=== PATIENT | female | born 1975 | race Caucasian/White ===

== ENCOUNTER 2016-10-11 19:37 | Emergency (ER) | payer OTHER ==
--- NOTE | 2016-10-11 19:48 | EDM.PDOC ---
ED HPI ENT - General Chief Complaint: ENT Problem Stated Complaint: SINUS INFECTION/SWOLLEN R SIDE OF FACE Time Seen by Provider: 10/11/16 19:48 - History of Present Illness INITIAL COMMENTS - FREE TEXT/NARRATIVE: 40-year-old female presents emergency room with dental pain. This is been getting worse over the last 24 hours patient has had a lot of problems with this tooth in the past however she's not been able to get in to see a dentist. Patient has had increased swelling pain no discharge she's getting some swelling below her jaw and generally it just hurts. She's been using ibuprofen did help some. The pain is on the right lower jaw. - Related Data Allergies/ADRs: Allergies Allergy/AdvReac Type Severity Reaction Status Date / Time No Known Allergies Allergy Verified 07/24/16 11:51 Home Meds: Home Meds . 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 Denies: Ear pain, Rhinitis, Sinus problem Respiratory: Reports: No Symptoms Cardiovascular: Reports: No symptoms GI/Abdominal: Reports: No symptoms ED EXAM, ENT - Physical Exam Exam: See Below Exam Limited By: No limitations General Appearance: alert, no apparent distress Ears: normal external exam, normal canal, hearing grossly normal, normal TMs Mouth/Throat: Normal lips, Normal oropharynx, Other (She's had several decayed and rotted teeth right lower mid is the problem tooth at this time she's got some surrounding gum erythema no drainage or abscess seen at this time it is tender to touch) Head: atraumatic, normocephalic, other (She is a small amount of swelling beneath the right side of her jaw) Neck: normal inspection, supple, non-tender, full range of motion Respiratory/Chest: no respiratory distress, lungs clear, normal breath sounds Cardiovascular: regular rate, rhythm, no edema, no murmur Course - Vital Signs Last Recorded V/S: Last Vital Signs Temp 37.3 C 10/11/16 19:46 Pulse 97 10/11/16 19:46 Resp 20 10/11/16 19:46 BP 177/109 H 10/11/16 19:46 Pulse Ox 100 10/11/16 19:46 Departure - Departure Time of Disposition: 19:54 Disposition: Home, Self-Care 01 Clinical Impression: Dental caries Prescriptions: Clindamycin HCl 150 mg PO Q6H #40 capsule Hydrocodone/Acetaminophen [[place] 5-325 Tablet] 1 - 2 tab PO Q6H PRN #10 tablet PRN Reason: Pain Instructions: Dental Caries, [id number] Referrals: PCP,None [Primary Care Provider] - Forms: ED Department Discharge Additional Instructions: Return to the emergency room with any questions or problems. Followup with a dentist as soon as possible. They are the ones that can fix this.
== END 2016-10-11 20:16 | disposition home or self-care (01) ==
LOC: JD.ED 19:37
CPT/HCPCS: 99283

== ENCOUNTER 2016-11-13 15:01 | Emergency (ER) | payer MEDICAID, OTHER ==
[2016-11-13] MEDS ORDERED: Amoxicillin/Clavulanate K 875-125 MG Tab PO ONE (15:35)
--- NOTE | 2016-11-13 15:41 | EDM.PDOC ---
ED HPI GENERAL MEDICAL PROBLEM - General Chief Complaint: General Stated Complaint: TOOTH PAIN Time Seen by Provider: 11/13/16 15:11 Source of Information: Reports: Patient History Limitations: Reports: No limitations - History of Present Illness INITIAL COMMENTS - FREE TEXT/NARRATIVE: Patient is a 41-year-old female presents ED complaining of right lower jaw swelling and pain to her right cheek. Patient states for the past today shows a saw and progressively getting worse. She does have a history of dental abscesses and has been on clindamycin and Augmentin over the past 2 months. She has appointment with oral surgeon this coming Saturday to to have a teeth extracted. She was informed to come to the ED for IV/by mouth or antibiotics. Pain has been mild to moderate decreased with Tylenol and ibuprofen. Appetite has minimally changed. She denies any fever/chills, nausea/vomiting, or any additional complaints. 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 Tooth/Teeth Pain Score (Numeric/FACES): 9 - Related Data Allergies Allergy/AdvReac Type Severity Reaction Status Date / Time No Known Allergies Allergy Verified 11/13/16 15:05 Home Meds: Home Meds Acetaminophen/HYDROcodone [[place] 325-5 MG] 1 tab PO Q6H PRN #5 tablet 11/13/16 [ Rx] Amoxicillin/Potassium Clav [Augmentin 875-125 Tablet] 1 each PO BID #20 tablet 11/13/16 [Rx] Past Medical History HEENT History: Reports: Other (see below) Other HEENT History: tooth pain 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 ED EXAM, GENERAL - Physical Exam Exam: See Below Exam Limited By: No limitations General Appearance: alert, WD/WN, no apparent distress Eye Exam: bilateral eye: normal inspection Ears: normal external exam, hearing grossly normal Nose: normal inspection, normal mucosa, no blood Throat/Mouth: Normal voice, Other (Swelling noted to the right lower jaw/cheek. Pain with palpation of the inner/outer cheek and upper/lower gum line. No increased warmth noted. No drainage noted. ) Head: atraumatic, normocephalic Neck: normal inspection, supple, non-tender, full range of motion. No: lymphadenopathy (L), lymphadenopathy (R) Respiratory/Chest: no respiratory distress, lungs clear, normal breath sounds, no accessory muscle use Cardiovascular: normal peripheral pulses, regular rate, rhythm Peripheral Pulses: 2+: radial (R) Neurological: alert, oriented, CN II-XII intact, normal cognition, no motor/ sensory deficits Psychiatric: normal affect, normal mood Skin Exam: Warm, Dry, Intact, Normal color Course - Vital Signs Last Recorded V/S: Last Vital Signs Temp 97.7 F 11/13/16 15:06 Pulse 80 11/13/16 15:57 Resp BP 140/70 11/13/16 15:57 Pulse Ox 98 11/13/16 15:06 - Orders/Labs/Meds Meds: Medications Discontinued Medications Generic Name Dose Route Start Last Admin Trade Name Chevyq PRN Reason Stop Dose Admin Amoxicillin/Clavulanate Potassium 1 tab 11/13/16 15:35 11/13/16 15:43 Augmentin 875 Mg/125 Mg PO 11/13/16 15:36 1 tab ONETIME ONE Administration Ceftriaxone Sodium 1 gm/ 0 gm 11/13/16 15:45 11/13/16 15:44 Lidocaine HCl 2.1 ml IM 1 inj Q24H POLLO Administration - Re-Assessments/Exams Free Text/Narrative Re-Assessment/Exam: Swelling noted to the right lower jaw/cheek with pain on palpation. She was on Augmentin previously with good results approximately 1 month ago. Requests IV/ IM and po antibiotics. Ordered rocephin 1 gram IM and augmentin 875mg po. Will discharge patient home with prescription for augmentin and norco for pain. Departure - Departure Time of Disposition: 15:36 Disposition: Home, Self-Care 01 Condition: good Clinical Impression: Dental abscess, Dental abscess Prescriptions: Acetaminophen/HYDROcodone [[place] 325-5 MG] 1 tab PO Q6H PRN #5 tablet PRN Reason: Pain (Severe 7-10) Amoxicillin/Potassium Clav [Augmentin 875-125 Tablet] 1 each PO BID #20 tablet Instructions: Dental Abscess, [id number] Referrals: PCP,None [Primary Care Provider] - Forms: ED Department Discharge Additional Instructions: Keep appointment with Dr. Palencia Oral Surgeon for this coming Saturday as scheduled. Take augmentin 875mg PO twice a day for 10 days. For pain take tylenol 650mg and ibuprofen 600mg every 6 hours in alternating fashion. For severe pain take norco 1 tab every 6 hours as needed. No driving while taking narcotics. Return to the E.D. if you develop fever/chills, n/v, worsening pain/ swelling.
[2016-11-13] MEDS ORDERED: cefTRIAXone 1 GM, Lidocaine 1% 2.1 ML IM SCH ×2 (15:45)
[2016-11-13 15:58] VITALS: BP 140/70
== END 2016-11-13 15:59 | disposition home or self-care (01) ==
LOC: JD.ED 15:01
DX: K04.7 Periapical abscess without sinus (principal); F17.210 Nicotine dependence, cigarettes, uncomplicated
CPT/HCPCS: 96372; 99283; A9270; J0696

== ENCOUNTER 2017-02-22 15:14 | Emergency (ER) | payer MEDICAID ==
[2017-02-22 15:29] VITALS: BP 137/87
--- NOTE | 2017-02-22 17:43 | EDM.PDOC ---
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 She states she has had heavy menstrual periods for at least several years but for the last 3 days she has had more heavy menstrual bleeding then typical. She has been soaking pads "very frequently". There also have been intermittent clots for the last 3 days since the onset of her menstrual period 3 days ago. Had intermittent lower abdominal and pelvic cramping. She feels weak, lightheaded and dizzy when standing. She states she does have history of uterine fibroids. No chest pain or difficulty breathing. No shoulder discomfort. 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 Psychiatric History: Reports: Anxiety, PTSD - Past Surgical History Female Surgical History: Reports: Section, D&C, Other (See Below) Other Female Surgeries/Procedures: placenta previa Social & Family History - Tobacco Use Smoking Status *Q: Current Every Day Smoker Years of Tobacco use: 14 Packs/Tins Daily: 1 Second Hand Smoke Exposure: Yes - Caffeine Use Caffeine Use: Reports: Tea - Alcohol Use Days Per Week of Alcohol Use: 0 - Recreational Drug Use Recreational Drug Use: No Recreational Drug Type: Reports: Marijuana/Hashish Recreational Drug Use Frequency: Binges ED ROS GENERAL - Review of Systems Review Of Systems: See Below Constitutional: Reports: No Symptoms HEENT: Reports: No Symptoms Respiratory: Denies: Shortness of Breath, Pleuritic Chest Pain Cardiovascular: Denies: Chest Pain GI/Abdominal: Reports: Abdominal Pain (Lower abdominal and pelvic cramping). Denies: Nausea, Vomiting : Reports: Other (More heavy vaginal bleeding than usual) Musculoskeletal: Reports: No Symptoms Skin: Reports: No Symptoms Neurological: Reports: Dizziness ED EXAM, RENAL/ - Physical Exam Exam: See Below General Appearance: Alert Eye Exam: Bilateral Eye: PERRL Throat/Mouth: Normal Inspection, Normal Oropharynx Neck: Supple Respiratory/Chest: No Respiratory Distress, Lungs Clear, Normal Breath Sounds Cardiovascular: Regular Rate, Rhythm GI/Abdominal: Soft, Tender (Female) Exam: Normal External Exam, Vaginal Bleeding (There is a small amount of dark blood in the posterior vaginal vault, no clots present at this time) Extremities: Normal Inspection Neurological: Alert, Oriented, No Motor/Sensory Deficits Skin Exam: Warm, Dry, Normal Color Course - Vital Signs Last Recorded V/S: Last Vital Signs Temp 98.1 F 02/22/17 15:28 Pulse 82 02/22/17 15:28 Resp 20 02/22/17 15:28 BP 137/87 02/22/17 15:28 Pulse Ox 100 02/22/17 15:28 - Orders/Labs/Meds Labs: Laboratory Tests 02/22/17 02/22/17 02/22/17 Range/Units 17:24 17:24 17:24 WBC 6.62 (3.98-10.04) K/mm3 RBC 4.36 (3.98-5.22) M/mm3 Hgb 11.2 (11.2-15.7) gm/L Hct 35.2 (34.1-44.9) % MCV 80.7 (79.4-94.8) fl MCH 25.7 (25.6-32.2) pg MCHC 31.8 L (32.2-35.5) g/dl RDW Std Deviation 42.7 (36.4-46.3) fL Plt Count 219 (182-369) K/mm3 MPV 10.2 (9.4-12.3) fl Neut % (Auto) 58.1 (34.0-71.1) % Lymph % (Auto) 31.9 (19.3-51.7) % Dewitt % (Auto) 7.4 (4.7-12.5) % Eos % (Auto) 1.8 (0.7-5.8) Baso % (Auto) 0.6 (0.1-1.2) % Neut # (Auto) 3.85 (1.56-6.13) K/mm3 Lymph # (Auto) 2.11 (1.18-3.74) K/mm3 Dewitt # (Auto) 0.49 H (0.24-0.36) K/mm3 Eos # (Auto) 0.12 (0.04-0.36) K/mm3 Baso # (Auto) 0.04 (0.01-0.08) K/mm3 Sodium 139 (136-145) mEq/L Potassium 4.0 (3.5-5.1) mEq/L Chloride 104 (98-107) mEq/L Carbon Dioxide 28 (21-32) mEq/L Anion Gap 11.0 (5-15) BUN 10 (7-18) mg/dL Creatinine 0.9 (0.55-1.02) mg/dL Est Cr Clr Drug Dosing 83.82 mL/min Estimated GFR (MDRD) > 60 (>60) mL/min BUN/Creatinine Ratio 11.1 L (14-18) Glucose 85 (74-106) mg/dL Calcium 8.8 (8.5-10.1) mg/dL Total Bilirubin 0.3 (0.2-1.0) mg/dL AST 20 (15-37) U/L ALT 22 (14-59) U/L Alkaline Phosphatase 76 (46-116) U/L Total Protein 7.3 (6.4-8.2) g/dl Albumin 3.9 (3.4-5.0) g/dl Globulin 3.4 gm/dL Albumin/Globulin Ratio 1.2 (1-2) TSH 3rd Generation 1.101 (0.358-3.74) uIU/mL HCG, Quant < 1.0 mIU/mL Departure - Departure Time of Disposition: 18:38 Disposition: Home, Self-Care 01 Condition: Fair Clinical Impression: Menorrhagia with regular cycle Anemia Qualifiers: Anemia type: unspecified type Qualified Code(s): D64.9 - Anemia, unspecified - Discharge Information Forms: ED Department Discharge Additional Instructions: Drink plenty of water to maintain hydration, rest, symptoms should gradually resolve now over the next day or 2, follow up with Carline later this month as planned, consider getting referral to women's clinic for further evaluation and treatment of heavier than normal menstrual bleeding, known history of uterine fibroids. Consider starting iron supplement once or twice daily to help build your iron level and hemoglobin level. Return to ED if symptoms worsening in any way.
== END 2017-02-22 18:45 | disposition home or self-care (01) ==
LOC: JD.ED 15:14
DX: N92.0 Excessive and frequent menstruation with regular cycle (principal); D64.9 Anemia, unspecified; F41.9 Anxiety disorder, unspecified; F17.210 Nicotine dependence, cigarettes, uncomplicated; F43.10 Post-traumatic stress disorder, unspecified; Z79.899 Other long term (current) drug therapy
CPT/HCPCS: 36415; 80053; 84443; 84702; 85025; 99282; 99284

== ENCOUNTER 2017-04-30 07:50 | Day surgery (SDC) | payer MEDICAID ==
[~2017-04-30 07:50] MED LIST: Lactated Ringers 1,000 ML IV SCH; Lidocaine 1%/Sod Bicarbonate in NS 8.4% 1 ML Syringe PRN; Sodium Chloride 0.9% 10 ML Syringe FLUSH PRN
[2017-04-30] MEDS ORDERED: Midazolam 1 MG/ML 2 ML SDV ONE (07:58)
[2017-04-30] MEDS ORDERED: Ondansetron 4 MG/2 ML SDV ONE (07:58)
[2017-04-30] MEDS ORDERED: Propofol 200 MG/20 ML SDV ONE (07:58)
[2017-04-30] MEDS ORDERED: Rocuronium 50 MG/5 ML Vial ONE (07:58)
[2017-04-30] MEDS ORDERED: fentaNYL 250 MCG/5 ML SDV ONE (07:58)
[2017-04-30] MEDS ORDERED: ceFAZolin 1 GM Vial ONE (07:59)
[2017-04-30] MEDS ORDERED: Lidocaine 1% 4 ML ONE (07:59)
[2017-04-30] MEDS ORDERED: Sodium Chloride 0.9% 50 ML SDV ONE (08:09)
[2017-04-30] MEDS ORDERED: Lidocaine 1% with EPINEPHrine 1:100,000 20 ML MDV ONE (08:09)
--- NOTE | 2017-04-30 08:20 | PCM.PREANE ---
Preanesthetic Assessment - Anesthesia/Transfusion/Family Hx Anesthesia History: Prior Anesthesia Without Reaction Family History of Anesthesia Reaction: No Transfusion History: Prior Transfusion Without Reaction - Review of Systems General: No Symptoms Pulmonary: No Symptoms Cardiovascular: No Symptoms Gastrointestinal: No Symptoms Neurological: No Symptoms Other: Reports: None - Physical Assessment NPO Status Date: 04/29/17 NPO Status Time: 00:00 Pulse: 92 O2 Sat by Pulse Oximetry: 97 Respiratory Rate: 16 Blood Pressure: 113/74 Temperature: 37.2 C Height: 1.73 m Weight: 70.307 kg ASA Class: 2 Mental Status: Alert & Oriented x3 Airway Class: Mallampati = 1 Dentition: Reports: Missing Tooth/Teeth Thyro-Mental Finger Breadths: 3 Mouth Opening Finger Breadths: 3 ROM/Head Extension: Full Lungs: Clear to Auscultation, Normal Respiratory Effort Cardiovascular: Regular Rate, Regular Rhythm, No Murmurs - Lab Values: Laboratory Last Values WBC 5.68 K/mm3 (3.98-10.04) 04/29/17 09:02 RBC 4.77 M/mm3 (3.98-5.22) 04/29/17 09:02 Hgb 12.0 gm/L (11.2-15.7) 04/29/17 09:02 Hct 38.0 % (34.1-44.9) 04/29/17 09:02 MCV 79.7 fl (79.4-94.8) 04/29/17 09:02 MCH 25.2 pg (25.6-32.2) L 04/29/17 09:02 MCHC 31.6 g/dl (32.2-35.5) L 04/29/17 09:02 RDW Std Deviation 46.4 fL (36.4-46.3) H 04/29/17 09:02 Plt Count 184 K/mm3 (182-369) 04/29/17 09:02 MPV 11.6 fl (9.4-12.3) 04/29/17 09:02 Neut % (Auto) 59.9 % (34.0-71.1) 04/29/17 09:02 Lymph % (Auto) 30.3 % (19.3-51.7) 04/29/17 09:02 [place] % (Auto) 6.9 % (4.7-12.5) 04/29/17 09:02 Eos % (Auto) 2.1 (0.7-5.8) 04/29/17 09:02 Baso % (Auto) 0.4 % (0.1-1.2) 04/29/17 09:02 Neut # (Auto) 3.41 K/mm3 (1.56-6.13) 04/29/17 09:02 Lymph # (Auto) 1.72 K/mm3 (1.18-3.74) 04/29/17 09:02 [place] # (Auto) 0.39 K/mm3 (0.24-0.36) H 04/29/17 09:02 Eos # (Auto) 0.12 K/mm3 (0.04-0.36) 04/29/17 09:02 Baso # (Auto) 0.02 K/mm3 (0.01-0.08) 04/29/17 09:02 Free T4 1.06 ng/dL (0.76-1.46) 04/29/17 09:02 TSH 3rd Generation 1.031 uIU/mL (0.358-3.74) 04/29/17 09:02 HCG, Quant < 1.0 mIU/mL 04/29/17 09:02 Blood Type O POSITIVE 04/29/17 09:02 Gel Antibody Screen Negative 04/29/17 09:02 - Allergies Allergies/Adverse Reactions: Allergies Allergy/AdvReac Type Severity Reaction Status Date / Time No Known Allergies Allergy Verified 04/29/17 15:40 - Blood Blood Available: Yes Product(s) Available: PRBC - Anesthesia Plan Pre-Op Medication Ordered: None - Acknowledgements Anesthesia Type Planned: General Anesthesia Pt an Appropriate Candidate for the Planned Anesthesia: Yes Alternatives and Risks of Anesthesia Discussed w Pt/Guardian: Yes Pt/Guardian Understands and Agrees with Anesthesia Plan: Yes PreAnesthesia Questionnaire HEENT History: Reports: Allergic Rhinitis, Other (See Below) Other HEENT History: tooth pain Cardiovascular History: Reports: Hypertension Respiratory History: Reports: None Gastrointestinal History: Reports: Chronic Constipation, GERD 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 OB/BYN History: abnormal mammogram, pelvic pain, , heavy menses, bacterial vagitis, hypermenorrhea, menorrhagia, fibroid uterus, trichamonas vaginitis Musculoskeletal History: Reports: None Neurological History: Reports: Migraines Psychiatric History: Reports: Anxiety, PTSD Endocrine/Metabolic History: Reports: Diabetes, Gestational Hematologic History: Reports: Blood Transfusion(s) Immunologic History: Reports: None Oncologic (Cancer) History: Reports: None Dermatologic History: Reports: None - Past Surgical History Head Surgeries/Procedures: Reports: None Cardiovascular Surgical History: Reports: None Respiratory Surgical History: Reports: None GI Surgical History: Reports: Colonoscopy Female Surgical History: Reports: Section, Cervical Conization, D&C , Other (See Below) Other Female Surgeries/Procedures: placenta previa Endocrine Surgical History: Reports: None Neurological Surgical History: Reports: None Musculoskeletal Surgical History: Reports: None Oncologic Surgical History: Reports: None Dermatological Surgical History: Reports: None - SUBSTANCE USE Smoking Status *Q: Current Every Day Smoker Tobacco Use Within Last Twelve Months: Cigarettes Second Hand Smoke Exposure: Yes Days Per Week of Alcohol Use: 0 Number of Drinks Per Day: 0 Total Drinks Per Week: 0 Recreational Drug Use History: No Recreational Drug Type: Reports: Marijuana/Hashish - HOME MEDS Home Medications: Home Meds Citalopram [Celexa] 10 mg PO DAILY 04/29/17 [History] - CURRENT (IN HOUSE) MEDS Current Meds: Current Medications Lactated Ringer's (Ringers, Lactated) 1,000 mls @ 125 mls/hr IV ASDIRECTED [facility] Stop: 04/30/17 23:00 Discontinued Medications Cefazolin Sodium (Ancef) Confirm Administered Dose 2 gm .ROUTE .STK-MED ONE Stop: 04/30/17 08:00 Fentanyl (Sublimaze) Confirm Administered Dose 250 mcg .ROUTE .STK-MED ONE Stop: 04/30/17 07:59 Lactated Ringer's (Ringers, Lactated) 1,000 mls @ 125 mls/hr IV ASDIRECTED POLLO Stop: 04/10/17 23:00 Lidocaine HCl (Xylocaine-Mpf 1%) Confirm Administered Dose 4 mls @ as directed .ROUTE .STK-MED ONE Stop: 04/30/17 08:00 Lidocaine/Sodium Bicarbonate (Buffered Lidocaine 1% In Ns 8.4%) 0.25 ml .XX ONETIME PRN PRN Reason: Prior to IV Start Stop: 04/10/17 18:00 Midazolam HCl (Versed 1 Mg/Ml) Confirm Administered Dose 2 mg .ROUTE .STK-MED ONE Stop: 04/30/17 07:59 Ondansetron HCl (Zofran) Confirm Administered Dose 4 mg .ROUTE .STK-MED ONE Stop: 04/30/17 07:59 Propofol (Diprivan 20 Ml) Confirm Administered Dose 200 mg .ROUTE .STK-MED ONE Stop: 04/30/17 07:59 Rocuronium [place] (Zemuron) Confirm Administered Dose 50 mg .ROUTE .STK-MED ONE Stop: 04/30/17 07:59 Sodium Chloride (Saline Flush) 10 ml FLUSH ASDIRECTED PRN PRN Reason: Keep Vein Open Stop: 04/10/17 18:00
[2017-04-30] MEDS ORDERED: Lidocaine 1%/Sod Bicarbonate in NS 8.4% 1 ML Syringe IV ONE (08:28)
[2017-04-30] MEDS ORDERED: diphenhydrAMINE 50 MG/ML SDV ONE (08:45)
[2017-04-30] MEDS ORDERED: Dexamethasone 4 MG/ML 5 ML MDV ONE (08:45)
[2017-04-30] MEDS ORDERED: HYDROmorphone 1 MG/ML Syringe ONE (09:20)
[2017-04-30] MEDS ORDERED: Lactated Ringers 1,000 ML ONE ×2 (09:33→10:05)
[2017-04-30] MEDS ORDERED: fentaNYL 100 MCG/2 ML SDV ONE ×2 (09:42→09:58)
[2017-04-30] MEDS ORDERED: Ketorolac 30 MG/ML SDV ONE (09:46)
--- NOTE | 2017-04-30 10:09 | PCM.OPNOTE ---
- General Post-Op/Procedure Note Date of Surgery/Procedure: 04/30/17 Operative Procedure(s): Total vaginal hysterectomy bilateral salpingectomy and right oophorectomy (left ovary not removed) [id number] Pre Op Diagnosis: Hypermenorrhea, irregular menses, history of conization of the cervix, fibroid uterus Post-Op Diagnosis: Same Anesthesia Technique: General ET Tube Primary Surgeon: Дмитрий Gupta Secondary Surgeon: Girish Gonzalez Anesthesia Provider: Jerrell Moon Reason Transcription Typist Was Necessary: Difficult vaginal surgery, prevent comorbidity and co-mortality. Patient's safety. Role of Transcription Typist: Transcription Typist surgery allowing observation of the operative site and assistance in utilizing instruments cutting sutures and allowing for visualization of the operative field. Managing retractors and helping make decisions on procedure. Fluid Replacement, Intraop: 2,000 EBL in mLs: 320 Drain/Tube Comments:: None Complications: None Condition: Good Free Text/Narrative:: Patient was transported to the operating room #2 and placed under general anesthesia in the low dorsal lithotomy position and prepared and draped in a sterile fashion examination under anesthesia had revealed a slightly retroflexed uterus. Slightly irregular but at most upper limits of normal size. SCDs in place and functioning prior surgery and patient had received 2 g of Ancef intravenously prior surgery. Timeout performed confirming name date of and procedure as total vaginal hysterectomy bilateral salpingo- oophorectomy and probable removal of both ovaries (the left ovary was difficult to reach and was not removed.) 20 mL of 0.25% lidocaine with epinephrine injected in multiple confluent areas around the cervix and circumscribing the cervix posterior colpotomy was performed utilizing the Enseal system crossclamping the uterosacral and cardinal ligaments activating and incising and proceeding cephalad until the area of the triple pedicle was approximated the uterus was inverted through the posterior colpotomy and crossclamping the triple pedicles the uterine uterus was removed along with the cervix. The anterior colpotomy was accomplished after the second set of pedicles. The right tube and ovary were easily grasped crossclamped with the Enseal system and activated and incised and removed. The left ovary was difficult to bring down towards the operative field. The the left tube was crossclamped and removed utilizing the Enseal system but the right ovary could not be crossclamped with the Enseal system and was not removed. (As previously discussed with patient prior to surgery.) The posterior cuff was then closed with a running locking suture of 0 Monocryl. Inspection of the pedicles showed no bleeding. Inspection of the area of the left uterine vessels did show some bleeding and this area was crossclamped with the Enseal system activated and bleeding was contained. Sponge needle pack asthma sharp count correct 2 reinspection of all pedicle sites showed no bleeding and the peritoneal cavity was closed with a pursestring suture of 0 Monocryl beginning at the apex anteriorly and proceeding clockwise. The anterior posterior cuff then approximated with 0 Monocryl hemostasis was normal no blood transfusions required patient transported postanesthesia care unit in satisfactory condition. I talked with patient's and all questions answered to his voiced satisfaction. Prescription for Percocet 5/325 dispense 30 sig 1 by mouth every 6 hours or 2 by mouth every 8 hours, will also send prescription for Zofran and ODT and nystatin cream for area of irritation in the old scar inflamed by the preop cleansing wipes.
[2017-04-30] MEDS ORDERED: HYDROmorphone 0.5 MG/0.5 ML Syringe IVPUSH PRN (10:21)
[2017-04-30] MEDS ORDERED: fentaNYL 100 MCG/2 ML SDV IVPUSH PRN (10:21)
--- NOTE | 2017-04-30 10:23 | PCM.POSTAN ---
POST ANESTHESIA ASSESSMENT - MENTAL STATUS Mental Status: Alert, Oriented - VITAL SIGNS Pulse Rate: 100 SaO2: 96 Resp Rate: 12 Blood Pressure: 114/80 Temperature: 37.0 C - RESPIRATORY Respiratory Status: Respiratory Rate WNL, Airway Patent, O2 Saturation Stable, Supplemental Oxygen - CARDIOVASCULAR CV Status: Pulse Rate WNL, Blood Pressure Stable - GASTROINTESTINAL GI Status: No Symptoms - PAIN Pain Score: 3 - POST OP HYDRATION Hydration Status: Adequate & Stable - OBSERVATIONS Free Text/Narrative:: no anesthesia complications noted
[2017-04-30] MEDS ORDERED: Acetaminophen/oxyCODONE 325-5 MG Tab PO ONE (12:00)
[2017-04-30 13:40] VITALS: BP 105/57
== END 2017-04-30 13:21 | disposition home or self-care (01) ==
LOC: JD.SDS 07:50
PROVIDERS: ATTEND Obstetrics & Gynecology
DX: D25.9 Leiomyoma of uterus, unspecified (principal); N83.8 Other noninflammatory disorders of ovary, fallopian tube and broad ligament; I10 Essential (primary) hypertension; K21.9 Gastro-esophageal reflux disease without esophagitis; F41.9 Anxiety disorder, unspecified; Z79.899 Other long term (current) drug therapy; Z98.890 Other specified postprocedural states; F17.210 Nicotine dependence, cigarettes, uncomplicated
CPT/HCPCS: 36415; 58262; 84439; 84443; 84702; 85025; 86850; 86900; 86901; A9270; J0690; J1100; J1170; J1200; J1885; J2250; J2405; J3010; J7120; 00944; J2704

== ENCOUNTER 2017-10-17 10:55 | Emergency (ER) | payer MEDICAID, OTHER ==
[2017-10-17 11:50] VITALS: BP 128/92
--- NOTE | 2017-10-17 12:40 | EDM.PDOC ---
ED HPI GENERAL MEDICAL PROBLEM - General Chief Complaint: General Stated Complaint: HEAD PAIN, NECK PAIN AND NOSEBLEED X 5 DAYS Time Seen by Provider: 10/17/17 12:11 Source of Information: Reports: Patient History Limitations: Reports: No Limitations - History of Present Illness INITIAL COMMENTS - FREE TEXT/NARRATIVE: Patient is a 41-year-old female presents to the ED complaining of a five-day history of headache, bloody nose, numbness to the left side of her face, sinus pressure, and ear discomfort. States symptoms remained constant with waxing and waning in nature. States at times has had bloody nose with blowing her nose. Pain to the left side of the head is along the jain region. Sharp in nature with waxing and waning. States face is at times feeling tingly with no asymmetry noted. Again symptoms vary. At its worse is a rated a 9/10. Currently a 4/10. She has had a runny nose with no sore throat. Questions if not related to sinuses. She has no history of trigeminal neuralgia, bleeding disorders, on anticoagulants/ASA, and or temporal arteritis. She denies head trauma, dizziness, hearing loss, fever, neck pain, vision loss, n/v, or any additional complaints. 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: Other OB/BYN History: abnormal mammogram, pelvic pain, , heavy menses, bacterial vagitis, hypermenorrhea, menorrhagia, fibroid uterus, trichamonas vaginitis Musculoskeletal History: Reports: None Neurological History: Reports: Migraines Psychiatric History: Reports: Anxiety, PTSD Endocrine/Metabolic History: Reports: Diabetes, Gestational Hematologic History: Reports: Blood Transfusion(s) Immunologic History: Reports: None Oncologic (Cancer) History: Reports: None Dermatologic History: Reports: None - Past Surgical History GI Surgical History: Reports: Colonoscopy Female Surgical History: Reports: Section, Cervical Conization, D&C , Hysterectomy, Other (See Below) Other Female Surgeries/Procedures: placenta previa Social & Family History - Tobacco Use Smoking Status *Q: Current Every Day Smoker Years of Tobacco use: 14 Packs/Tins Daily: 1 Used Tobacco, but Quit: No Second Hand Smoke Exposure: Yes - Caffeine Use Caffeine Use: Reports: Coffee, Tea - Alcohol Use Days Per Week of Alcohol Use: 0 Number of Drinks Per Day: 0 Total Drinks Per Week: 0 - Recreational Drug Use Recreational Drug Use: No Recreational Drug Type: Reports: Marijuana/Hashish Recreational Drug Use Frequency: Binges ED ROS GENERAL - Review of Systems Review Of Systems: ROS reveals no pertinent complaints other than HPI. ED EXAM, GENERAL - Physical Exam Exam: See Below Exam Limited By: No Limitations General Appearance: Alert, WD/WN, No Apparent Distress Eye Exam: Bilateral Eye: EOMI, Nystagmus (None noted), PERRL Ears: Normal External Exam, Normal Canal, Hearing Grossly Normal, Normal TMs Nose: Normal Inspection, Normal Mucosa, No Blood Throat/Mouth: Normal Inspection, Normal Oropharynx, Normal Voice, No Airway Compromise Head: Atraumatic, Normocephalic Neck: Normal Inspection, Supple, Non-Tender, Full Range of Motion. No: Lymphadenopathy (L), Lymphadenopathy (R) Respiratory/Chest: No Respiratory Distress, Lungs Clear, Normal Breath Sounds, No Accessory Muscle Use, Chest Non-Tender Cardiovascular: Normal Peripheral Pulses, Regular Rate, Rhythm Peripheral Pulses: 4+: Radial (L), Radial (R) Back Exam: Normal Inspection Extremities: Normal Inspection Neurological: Alert, Oriented, CN II-XII Intact, Normal Cognition, No Motor/ Sensory Deficits, Other (No sensory changes noted with palpation of the face. No facial droop. No slurred speech. No loss of labial fold. No uvula deviation. No weakness discrepancies to the upper and lower extremities. Cerebellar function intact including: Finger-nose, rapid alternating movements, and heel-to -vail.) Psychiatric: Normal Affect, Normal Mood Skin Exam: Warm, Dry, Intact, Normal Color, No Rash Course - Vital Signs Last Recorded V/S: Last Vital Signs Temp 98.2 F 10/17/17 11:47 Pulse 105 H 10/17/17 11:47 Resp 18 10/17/17 11:47 BP 128/92 H 10/17/17 11:47 Pulse Ox 100 10/17/17 11:47 - Orders/Labs/Meds Labs: Laboratory Tests 10/17/17 10/17/17 10/17/17 Range/Units 12:42 12:42 12:42 WBC 5.21 (3.98-10.04) K/mm3 RBC 4.86 (3.98-5.22) M/mm3 Hgb 14.5 (11.2-15.7) gm/L Hct 43.6 (34.1-44.9) % MCV 89.7 (79.4-94.8) fl MCH 29.8 (25.6-32.2) pg MCHC 33.3 (32.2-35.5) g/dl RDW Std Deviation 41.9 (36.4-46.3) fL Plt Count 190 (182-369) K/mm3 MPV 10.7 (9.4-12.3) fl Neutrophils % (Manual) 61 H (40-60) % Band Neutrophils % 0 (0-10) % Lymphocytes % (Manual) 31 (20-40) % Atypical Lymphs % 0 % Monocytes % (Manual) 6 (2-10) % Eosinophils % (Manual) 1 (0.7-5.8) % Basophils % (Manual) 1 (0.1-1.2) Platelet Estimate Adequate RBC Morph Comment Normal ESR 11 (0-20) mm/hr PT (8.0-13.0) SECONDS INR APTT (22-36) SECONDS Sodium 146 H (136-145) mEq/L Potassium 4.1 (3.5-5.1) mEq/L Chloride 109 H (98-107) mEq/L Carbon Dioxide 26 (21-32) mEq/L Anion Gap 15.1 H (5-15) BUN 13 (7-18) mg/dL Creatinine 0.9 (0.55-1.02) mg/dL Est Cr Clr Drug Dosing 86.84 mL/min Estimated GFR (MDRD) > 60 (>60) mL/min BUN/Creatinine Ratio 14.4 (14-18) Glucose 69 L (74-106) mg/dL Calcium 9.0 (8.5-10.1) mg/dL Total Bilirubin 0.2 (0.2-1.0) mg/dL AST 14 L (15-37) U/L ALT 17 (14-59) U/L Alkaline Phosphatase 76 (46-116) U/L C-Reactive Protein < 0.2 (<1.0) mg/dL Total Protein 7.0 (6.4-8.2) g/dl Albumin 3.8 (3.4-5.0) g/dl Globulin 3.2 gm/dL Albumin/Globulin Ratio 1.2 (1-2) // Range/Units 12:42 WBC (3.98-10.04) K/mm3 RBC (3.98-5.22) M/mm3 Hgb (11.2-15.7) gm/L Hct (34.1-44.9) % MCV (79.4-94.8) fl MCH (25.6-32.2) pg MCHC (32.2-35.5) g/dl RDW Std Deviation (36.4-46.3) fL Plt Count (182-369) K/mm3 MPV (9.4-12.3) fl Neutrophils % (Manual) (40-60) % Band Neutrophils % (0-10) % Lymphocytes % (Manual) (20-40) % Atypical Lymphs % % Monocytes % (Manual) (2-10) % Eosinophils % (Manual) (0.7-5.8) % Basophils % (Manual) (0.1-1.2) Platelet Estimate RBC Morph Comment ESR (0-20) mm/hr PT 10.0 (8.0-13.0) SECONDS INR 0.94 APTT 26 (22-36) SECONDS Sodium (136-145) mEq/L Potassium (3.5-5.1) mEq/L Chloride (98-107) mEq/L Carbon Dioxide (21-32) mEq/L Anion Gap (5-15) BUN (7-18) mg/dL Creatinine (0.55-1.02) mg/dL Est Cr Clr Drug Dosing mL/min Estimated GFR (MDRD) (>60) mL/min BUN/Creatinine Ratio (14-18) Glucose (74-106) mg/dL Calcium (8.5-10.1) mg/dL Total Bilirubin (0.2-1.0) mg/dL AST (15-37) U/L ALT (14-59) U/L Alkaline Phosphatase (46-116) U/L C-Reactive Protein (<1.0) mg/dL Total Protein (6.4-8.2) g/dl Albumin (3.4-5.0) g/dl Globulin gm/dL Albumin/Globulin Ratio (1-2) Meds: Medications Discontinued Medications Generic Name Dose Route Start Last Admin Trade Name Elbert PRN Reason Stop Dose Admin Acetaminophen 975 mg 10/17/17 13:00 10/17/17 13:43 Tylenol PO 10/17/17 13:01 975 mg NOW ONE Administration - Re-Assessments/Exams Free Text/Narrative Re-Assessment/Exam: Ordered CBC, chem 14, coag studies, ESR, CRP, CT of the head, and Tylenol 975 mg by mouth. Labs reviewed: CBC essentially normal. No concerns on coag studies. Sodium mildly elevated 146. AG 15.1. Creatinine 0.9. CRP less than 0.2. ESR is 11. CT of the head impression: No abnormality is identified a noncontrast head CT study. Patient states with the administration of Tylenol she's had minimal improvements. Differential diagnosis possibility of trigeminal neuralgia. No findings concerning for acute otitis media. No sinusitis. Treatment at this point will include Greenwood one tab by mouth here in the ED with a prescription on discharge. Patient will be seeing her PCP tomorrow for reevaluation. Departure - Departure Time of Disposition: 14:55 Disposition: Home, Self-Care 01 Condition: Good Clinical Impression: Facial discomfort Head ache Qualifiers: Headache type: unspecified Headache chronicity pattern: unspecified pattern Intractability: not intractable Qualified Code(s): R51 - Headache - Discharge Information Prescriptions: Acetaminophen/HYDROcodone [Greenwood 325-5 MG] 1 tab PO Q6H PRN #8 tablet PRN Reason: Pain (Severe 7-10) Instructions: Sinus Headache Referrals: Nena Dumont PA [Primary Care Provider] - Forms: ED Department Discharge, ED Return to Work/School Form Additional Instructions: Keep appointment as scheduled tomorrow with her PCP. Suspect cause of discomfort is most likely a sinus headache. At this point recommendations are symptomatic care including: Claritin 10 mg every day, Flonase 1 spray each nares twice a day, nasal saline spray 1-2 sprays every hour while awake, Tylenol 650 mg every 6 hours, ibuprofen 600 mg every 6 hours in alternating fashion with Tylenol, for severe pain take Greenwood one tab by mouth. Do not drive today while receiving a sedative medication while in the ED. Do not drive while taking the Greenwood. Other etiologies of discomfort may be associated with trigeminal neuralgia. Please see your PCP to discuss further treatment options. No antibiotic will be prescribed at this time due to the duration of symptoms. Do believe this is most likely viral in etiology. Return to the ED if you develop any new or worsening symptoms
[2017-10-17] MEDS ORDERED: Acetaminophen 325 MG Tab PO ONE (13:00)
--- NOTE | 2017-10-17 13:10 | CT ---
Head CT Technique: Multiple axial sections through the brain were obtained. Intravenous contrast was not utilized. Comparison: No prior intracranial imaging. Findings: Ventricles along with basal cisterns and sulci over the convexities are within normal limits for the patient's age. No abnormal parenchymal densities are seen. No evidence of intracranial hemorrhage. No midline shift or mass effect is seen. Bone window settings were reviewed which shows the visualized sinuses to appear clear. No acute calvarial abnormality is seen. Impression: 1. No abnormality is identified on noncontrast head CT study. Diagnostic code #1
== END 2017-10-17 15:11 | disposition home or self-care (01) ==
LOC: JD.ED 10:55
DX: R51 Headache (principal); F17.210 Nicotine dependence, cigarettes, uncomplicated; I10 Essential (primary) hypertension
CPT/HCPCS: 36415; 70460; 80053; 85025; 85610; 85652; 85730; 86140; 99284; A9270; 99283

== ENCOUNTER 2018-02-01 11:24 | Emergency (ER) | payer SELFPAY ==
[2018-02-01 11:34] VITALS: BP 124/89
--- NOTE | 2018-02-01 12:42 | EDM.PDOC ---
ED HPI GENERAL MEDICAL PROBLEM - General Chief Complaint: Upper Extremity Injury/Pain Stated Complaint: R HAND INJURY DUE TO FALL Time Seen by Provider: 02/01/18 11:31 Source of Information: Reports: Patient History Limitations: Reports: No Limitations - History of Present Illness INITIAL COMMENTS - FREE TEXT/NARRATIVE: The patient presents with right hand pain. She slipped and fell and tried to catch herself a couple days ago. She has some pain to her right leg but no other injuries. Her right thumb and right hand have pain. She is right handed. 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 Right Hand Pain Score (Numeric/FACES): 6 - Related Data Allergies Allergy/AdvReac Type Severity Reaction Status Date / Time No Known Allergies Allergy Verified 02/01/18 11:34 Home Meds: Home Meds Citalopram Hydrobromide [Celexa] 40 mg PO DAILY 02/01/18 [History] Prazosin HCl [Prazosin] 5 mg PO DAILY 02/01/18 [History] Topiramate [Topiramate ER] 100 mg PO DAILY 02/01/18 [History] busPIRone [Buspar] 20 mg PO BID 02/01/18 [History] hydrOXYzine pamoate [Hydroxyzine Pamoate] 100 mg PO DAILY 02/01/18 [History] Past Medical History HEENT History: Reports: Allergic Rhinitis Other HEENT History: tooth pain Cardiovascular History: Reports: Hypertension Respiratory History: Reports: None Gastrointestinal History: Reports: Chronic Constipation, GERD 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[employer]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 History: abnormal mammogram, pelvic pain, , heavy menses, bacterial vagitis, hypermenorrhea, menorrhagia, fibroid uterus, trichamonas vaginitis Musculoskeletal History: Reports: None Neurological History: Reports: Migraines Psychiatric History: Reports: Anxiety, Depression, PTSD Endocrine/Metabolic History: Reports: Diabetes, Gestational Hematologic History: Reports: Blood Transfusion(s) Immunologic History: Reports: None Oncologic (Cancer) History: Reports: None Dermatologic History: Reports: None - Past Surgical History Head Surgeries/Procedures: Reports: None GI Surgical History: Reports: Colonoscopy Female Surgical History: Reports: Section, Cervical Conization, D&C , Hysterectomy, Other (See Below) Other Female Surgeries/Procedures: placenta previa Social & Family History - Tobacco Use Smoking Status *Q: Current Every Day Smoker Years of Tobacco use: 21 Packs/Tins Daily: 0.5 Used Tobacco, but Quit: No - Caffeine Use Caffeine Use: Reports: None - Recreational Drug Use Recreational Drug Use: No Review of Systems - Review of Systems Review Of Systems: See Below Constitutional: Reports: No Symptoms Eyes: Reports: No Symptoms Ears: Reports: No Symptoms Nose: Reports: No Symptoms Mouth/Throat: Reports: No Symptoms Respiratory: Reports: No Symptoms Cardiovascular: Reports: No Symptoms GI/Abdominal: Reports: No Symptoms Genitourinary: Reports: No Symptoms Musculoskeletal: Reports: Other (Right thumb pain and right hand pain) ED EXAM, GENERAL - Physical Exam Exam: See Below Exam Limited By: No Limitations General Appearance: Alert, No Apparent Distress Ears: Normal External Exam Nose: Normal Inspection Head: Atraumatic, Normocephalic Neck: Normal Inspection Respiratory/Chest: No Respiratory Distress Extremities: Other (Mild edema at the base of the right thumb and pain to the 1st carpal) Course - Vital Signs Last Recorded V/S: Last Vital Signs Temp 97.6 F 02/01/18 11:29 Pulse 88 02/01/18 11:29 Resp 16 02/01/18 11:29 BP 124/89 02/01/18 11:29 Pulse Ox 98 02/01/18 11:29 - Orders/Labs/Meds Orders: Active Orders 24 hr Category Date Time Status Hand Comp Min 3V Rt [CR] Stat Exams 02/01/18 11:57 Taken - Re-Assessments/Exams Free Text/Narrative Re-Assessment/Exam: 02/01/18 12:39 Her x-ray looks good. I will discharge her home. Departure - Departure Time of Disposition: 12:40 Disposition: Home, Self-Care 01 Condition: Good Clinical Impression: Sprain of right hand Qualifiers: Encounter type: initial encounter Qualified Code(s): S63.91XA - Sprain of unspecified part of right wrist and hand, initial encounter - Discharge Information *PRESCRIPTION DRUG MONITORING PROGRAM REVIEWED*: Not Applicable *COPY OF PRESCRIPTION DRUG MONITORING REPORT IN PATIENT MICHAELLE: Not Applicable Referrals: Nena Dumont PA [Primary Care Provider] - 1 Week Additional Instructions: Ice your hand for 15 minutes 3 times per day for 2 days. Take tylenol or motrin for pain. Follow up with Nena Dumont in 1 week if you are not better. - My Orders Last 24 Hours: My Active Orders 02/01/18 11:57 Hand Comp Min 3V Rt [CR] Stat - Assessment/Plan Last 24 Hours: My Active Orders 02/01/18 11:57 Hand Comp Min 3V Rt [CR] Stat
--- NOTE | 2018-02-02 11:02 | CR ---
Right hand: Four views of the right hand were obtained. Comparison: No prior hand exam. Joint spaces are maintained. No acute fracture, dislocation or other bony abnormality is seen. Impression: 1. No abnormalities is appreciated on right hand exam. Diagnostic code #1
== END 2018-02-01 13:20 | disposition home or self-care (01) ==
LOC: JD.ED 11:24
DX: S63.91XA Sprain of unspecified part of right wrist and hand, initial encounter (principal); I10 Essential (primary) hypertension; K21.9 Gastro-esophageal reflux disease without esophagitis; F17.210 Nicotine dependence, cigarettes, uncomplicated; F41.9 Anxiety disorder, unspecified; F32.9 Major depressive disorder, single episode, unspecified; Z79.899 Other long term (current) drug therapy; W01.0XXA Fall on same level from slipping, tripping and stumbling without subsequent striking against object, initial encounter
CPT/HCPCS: 73130-26-RT; 73130-RT; 99283

== ENCOUNTER 2021-07-17 20:32 | Emergency (ER) | payer SELFPAY ==
[2021-07-17 20:44] VITALS: BP 154/112; PULSE 88
[2021-07-17] MEDS ORDERED: Sodium Chloride 0.9% 10 ML Syringe FLUSH PRN (21:05)
[2021-07-17] MEDS ORDERED: Ondansetron 4 MG/2 ML SDV IVPUSH ONE (21:05)
[2021-07-17] MEDS ORDERED: Sodium Chloride 0.9% 1,000 ML IV STA (21:05)
[2021-07-17] MEDS ORDERED: HYDROmorphone 0.5 MG/0.5 ML Syringe IVPUSH ONE (21:05)
--- NOTE | 2021-07-17 21:13 | EDM.PDOC ---
<Lucien Rao - Last Filed: 07/17/21 23:17> ED HPI GENERAL MEDICAL PROBLEM - General Chief Complaint: ENT Problem Stated Complaint: [facility] Time Seen by Provider: 07/17/21 20:59 - Related Data Allergies Allergy/AdvReac Type Severity Reaction Status Date / Time No Known Allergies Allergy Verified 02/01/18 11:34 Home Meds: Home Meds Citalopram Hydrobromide [Celexa] 40 mg PO DAILY 02/01/18 [History] Prazosin HCl [Prazosin] 5 mg PO DAILY 02/01/18 [History] Topiramate [Topiramate ER] 100 mg PO DAILY 02/01/18 [History] busPIRone [Buspar] 20 mg PO BID 02/01/18 [History] hydrOXYzine pamoate [Hydroxyzine Pamoate] 100 mg PO DAILY 02/01/18 [History] Amoxicillin/Clavulanate K [Augmentin 875-125 MG] 1 tab PO BID 10 Days #19 tablet 07/17/21 [Rx] Hydrocodone/Acetaminophen [Hydrocodone-Acetamin 5-325 mg] 1 each PO Q4H PRN #5 tablet 07/17/21 [Rx] Ondansetron [Zofran ODT] 4 mg PO Q6H PRN #10 tab.dis 07/17/21 [Rx] Course - Re-Assessments/Exams Free Text/Narrative Re-Assessment/Exam: 07/17/21 23:17 The patient sodium and chloride is a little low this could be related to her gastroenteritis. She is advised to push lots of fluids such as Gatorade and Pedialyte return as needed. Departure - Departure Disposition: Home, Self-Care 01 Clinical Impression: Dental caries, Gastroenteritis - Discharge Information Prescriptions: Amoxicillin/Clavulanate K [Augmentin 875-125 MG] 1 tab PO BID 10 Days #19 tablet Hydrocodone/Acetaminophen [Hydrocodone-Acetamin 5-325 mg] 1 each PO Q4H PRN #5 tablet PRN Reason: Pain Ondansetron [Zofran ODT] 4 mg PO Q6H PRN #10 tab.dis PRN Reason: Nausea/Vomiting Instructions: Dental Caries, Adult Referrals: PCP,None [Primary Care Provider] - Forms: ED Department Discharge Additional Instructions: Use Zofran as needed for nausea. Take Augmentin as prescribed until complete. Use Tylenol and ibuprofen routinely for pain. For pain not relieved by this, you may take 1 hydrocodone with Tylenol. Follow-up with dentist as soon as possible. Return to ER for new or worsening symptoms. Push lots of fluids such as Gatorade and Pedialyte. <SlaughterAnna cohen - Last Filed: 07/18/21 13:24> ED HPI GENERAL MEDICAL PROBLEM - General Source of Information: Reports: Patient, RN Notes Reviewed History Limitations: Reports: No Limitations - History of Present Illness INITIAL COMMENTS - FREE TEXT/NARRATIVE: Patient is a 45-year-old female presenting to the emergency department with complaints of a 2-month history of pain to her left lower tooth radiating to her ear and left side of her head. She also complains of nausea, vomiting, diarrhea for the last few days as well as subjective fever, however she has not checked her temperature at home. She took "aspirin "at home earlier, however did not know what time it was. Reports that she has had similar symptoms in the past related to dental caries. Denies any abdominal pain. 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: abnormal mammogram, pelvic pain, , heavy menses, bacterial vagitis, hypermenorrhea, menorrhagia, fibroid uterus, trichamonas vaginitis Musculoskeletal History: Reports: None Neurological History: Reports: Migraines Psychiatric History: Reports: Anxiety, Depression, PTSD Endocrine/Metabolic History: Reports: Diabetes, Gestational Hematologic History: Reports: Blood Transfusion(s) Immunologic History: Reports: None Oncologic (Cancer) History: Reports: None Dermatologic History: Reports: None - Past Surgical History Head Surgeries/Procedures: Reports: None Cardiovascular Surgical History: Reports: None Respiratory Surgical History: Reports: None GI Surgical History: Reports: Colonoscopy Female Surgical History: Reports: Section, Cervical Conization, D&C, Hysterectomy, Other (See Below) Other Female Surgeries/Procedures: placenta previa Endocrine Surgical History: Reports: None Neurological Surgical History: Reports: None Musculoskeletal Surgical History: Reports: None Oncologic Surgical History: Reports: None Dermatological Surgical History: Reports: None Social & Family History - Tobacco Use Tobacco Use Status *Q: Current Every Day Tobacco User Years of Tobacco use: 20 Packs/Tins Daily: 0.5 - Caffeine Use Caffeine Use: Reports: None - Recreational Drug Use Recreational Drug Use: Yes Drug Use in Last 12 Months: Yes Recreational Drug Type: Reports: Marijuana/Hashish Other Recreational Drug Type: Last used marijuana yesterday ED ROS ENT - Review of Systems Review Of Systems: See Below Constitutional: Reports: Fever, Chills HEENT: Reports: Other (tooth pain) Respiratory: Reports: No Symptoms Cardiovascular: Reports: No Symptoms Endocrine: Reports: No Symptoms GI/Abdominal: Reports: Diarrhea, Nausea, Vomiting. Denies: Abdominal Pain : Reports: No Symptoms Musculoskeletal: Reports: No Symptoms Skin: Reports: No Symptoms Neurological: Reports: No Symptoms Psychiatric: Reports: No Symptoms Hematologic/Lymphatic: Reports: No Symptoms Immunologic: Reports: No Symptoms ED EXAM, ENT - Physical Exam Exam: See Below Exam Limited By: No Limitations General Appearance: Alert, WD/WN, No Apparent Distress Mouth/Throat: Other (dental caries to tooth 18. Mild gingival errythema. No visible abcess or jaw swelling.) Respiratory/Chest: No Respiratory Distress, Lungs Clear, Normal Breath Sounds, No Accessory Muscle Use, Chest Non-Tender GI/Abdominal: Normal Bowel Sounds, Soft, Non-Tender, No Organomegaly, No Distention, No Abnormal Bruit, No Mass Neurological: Alert, Oriented, Normal Cognition, Normal Gait, Normal Reflexes, No Motor/Sensory Deficits Psychiatric: Normal Affect, Normal Mood Skin: Warm, Dry, Intact, Normal Color, No Rash Course - Vital Signs Last Recorded V/S: Last Vital Signs Temp 96.9 F 07/17/21 20:39 Pulse 88 07/17/21 20:39 Resp 19 07/17/21 20:39 BP 154/112 H 07/17/21 20:39 Pulse Ox 100 07/17/21 20:39 - Orders/Labs/Meds Orders: Active Orders 24 hr Category Date Time Status Peripheral IV Insertion Adult [OM.PC] Stat Oth 07/17/21 21:05 Ordered Labs: Laboratory Tests 07/17/21 07/17/21 07/17/21 Range/Units 20:37 22:25 22:25 WBC 9.43 (3.98-10.04) K/mm3 RBC 4.52 (3.98-5.22) M/mm3 Hgb 13.7 (11.2-15.7) gm/dl Hct 39.4 (34.1-44.9) % MCV 87.2 (79.4-94.8) fl MCH 30.3 (25.6-32.2) pg MCHC 34.8 (32.2-35.5) g/dl RDW Std Deviation 35.6 L (36.4-46.3) fL Plt Count 183 (182-369) K/mm3 MPV 9.5 (9.4-12.3) fl Neut % (Auto) 73.9 H (34.0-71.1) % Lymph % (Auto) 17.8 L (19.3-51.7) % [place] % (Auto) 7.4 (4.7-12.5) % Eos % (Auto) 0.4 L (0.7-5.8) Baso % (Auto) 0.3 (0.1-1.2) % Neut # (Auto) 6.96 H (1.56-6.13) K/mm3 Lymph # (Auto) 1.68 (1.18-3.74) K/mm3 [place] # (Auto) 0.70 H (0.24-0.36) K/mm3 Eos # (Auto) 0.04 (0.04-0.36) K/mm3 Baso # (Auto) 0.03 (0.01-0.08) K/mm3 Sodium 126 L D (136-145) mEq/L Potassium 3.7 (3.5-5.1) mEq/L Chloride 92 L D (98-107) mEq/L Carbon Dioxide 26 (21-32) mEq/L Anion Gap 11.7 (5-15) BUN 10 (7-18) mg/dL Creatinine 0.7 (0.55-1.02) mg/dL Est Cr Clr Drug Dosing 106.49 mL/min Estimated GFR (MDRD) > 60 (>60) mL/min BUN/Creatinine Ratio 14.3 (14-18) Glucose 95 (70-99) mg/dL Calcium 7.9 L (8.5-10.1) mg/dL Total Bilirubin 0.5 (0.2-1.0) mg/dL AST 20 (15-37) U/L ALT 25 (14-59) U/L Alkaline Phosphatase 69 (46-116) U/L C-Reactive Protein <0.2 (<1.0) mg/dL Total Protein 6.0 L (6.4-8.2) g/dl Albumin 3.3 L (3.4-5.0) g/dl Globulin 2.7 gm/dL Albumin/Globulin Ratio 1.2 (1-2) Influenza Type A RNA Negative (NEGATIVE) Influenza Type B RNA Negative (NEGATIVE) SARS-CoV-2 RNA (NATE) Negative (NEGATIVE) Meds: Medications Discontinued Medications Generic Name Dose Route Start Last Admin Trade Name Freq PRN Reason Stop Dose Admin Amoxicillin/Clavulanate Potassium 1 tab 07/17/21 21:40 07/17/21 22:00 Amoxicillin/Clavulanate K 875-125 Mg Tab PO 07/17/21 21:41 1 tab ONETIME ONE Administration Hydromorphone HCl 0.5 mg 07/17/21 21:05 07/17/21 21:15 Hydromorphone 0.5 Mg/0.5 Ml Syringe IVPUSH 07/17/21 21:06 0.5 mg ONETIME ONE Administration Sodium Chloride 1,000 mls @ 999 mls/hr 07/17/21 21:05 07/17/21 21:16 Normal Saline IV 07/17/21 22:05 999 mls/hr NOW STA Administration Ceftriaxone Sodium 2 gm/ 100 mls @ 200 mls/hr 07/17/21 21:39 07/17/21 22:01 Sodium Chloride IV 07/17/21 22:08 200 mls/hr ONETIME ONE Administration Ondansetron HCl 4 mg 07/17/21 21:05 07/17/21 21:15 Ondansetron 4 Mg/2 Ml Sdv IVPUSH 07/17/21 21:06 4 mg ONETIME ONE Administration Sodium Chloride 10 ml 07/17/21 21:05 07/17/21 21:18 Sodium Chloride 0.9% 10 Ml Syringe FLUSH 10 ml ASDIRECTED PRN Administration Keep Vein Open - Re-Assessments/Exams Free Text/Narrative Re-Assessment/Exam: Patient is a 45 year old female presenting to ER with c/o left tooth pain x 2 months as well as recent onset of nausea, vomiting, diarrhea, and subjective fever. VS in ER are normal. She is afebrile. There is an obvious dental janet tooth 18 as well as mild gingival errythema. There is no swelling or tenderness of the external jaw. Remainder of exam is normal. I have order blood work and covid/influenza testing. I will give a 1L bolus of NS, Zofran, Dilaudid, Rocephin 2G IV, and Augmentin. 07/17/21 2305 CBC is unremarkable. CMP pending. I have sent prescriptions for Augmentin, Zofran, and [place]. Case was discussed with Dr. Rao d/t end of shift. He will assume care and disposition of patient pending CMP results. Departure - Departure Time of Disposition: 22:50 Condition: Good - Discharge Information *PRESCRIPTION DRUG MONITORING PROGRAM REVIEWED*: Yes *COPY OF PRESCRIPTION DRUG MONITORING REPORT IN PATIENT MICHAELLE: No Sepsis Event Note (ED) - Evaluation Sepsis Screening Result: No Definite Risk - My Orders Last 24 Hours: My Active Orders 07/17/21 21:05 Peripheral IV Insertion Adult [OM.PC] Stat - Assessment/Plan Last 24 Hours: My Active Orders 07/17/21 21:05 Peripheral IV Insertion Adult [OM.PC] Stat
[2021-07-17 21:23] LABS: CORONAVIRUS COVID-19 NAA NEGATIVE (NEGATIVE)
[2021-07-17] MEDS ORDERED: cefTRIAXone 2 GM in Sodium Chloride 0.9% 100 ML IV ONE (21:39)
[2021-07-17] MEDS ORDERED: Amoxicillin/Clavulanate K 875-125 MG Tab PO ONE (21:40)
== END 2021-07-17 23:28 | disposition home or self-care (01) ==
LOC: JD.ED 20:32
DX: K02.9 Dental caries, unspecified (principal); K52.9 Noninfective gastroenteritis and colitis, unspecified; I10 Essential (primary) hypertension; Z72.0 Tobacco use; Z79.899 Other long term (current) drug therapy; Z20.822 Contact with and (suspected) exposure to COVID-19
CPT/HCPCS: 0240U; 36415; 80053; 85025; 86140; 96365; 96375; 99284; A9270; J0696; J1170; J2405; J7030

== ENCOUNTER 2023-07-29 16:24 | Emergency (ER) | payer SELFPAY ==
[2023-07-29 17:06] LABS: APPEARANCE,URINE CLEAR (Clear); BILIRUBIN,URINE NEGATIVE (Negative); COLOR,URINE YELLOW (Yellow); GLUCOSE,URINE NEGATIVE (Negative); KETONES,URINE NEGATIVE (Negative); LEUKOCYTE ESTERASE,URINE NEGATIVE (Negative); NITRITE,URINE NEGATIVE (Negative); OCCULT BLOOD,URINE NEGATIVE (Negative); PH,URINE 6.5 (5.0-8.0); PROTEIN,URINE NEGATIVE (Negative); UROBILINOGEN,URINE 0.2 (0.2-1.0)
[2023-07-29 17:22] LABS: BASOPHILS PERCENT AUTO 0.7 % (0.0-1.0); EOSINOPHILS ABSOLUTE AUTO 0.1 K/mm3 (0.0-0.4); HEMATOCRIT 43.5 % (37.0-47.0); HEMOGLOBIN 14.7 gm/dl (12.0-16.0); IMMATURE GRAN ABSOLUTE AUTO 0.02 K/mm3 (0.00-0.05); IMMATURE GRAN PERCENT AUTO 0.3 % (0.0-0.4); LYMPHOCYTES ABSOLUTE AUTO 1.7 K/mm3 (1.0-4.8); LYMPHOCYTES PERCENT AUTO 28.6 % (24.0-44.0); MEAN CORPUSCULAR HEMOGLOBIN 30.4 pg (28.0-32.0); MEAN CORPUSCULAR HGB CONC 33.8 g/dl (32.0-36.0); MEAN CORPUSCULAR VOLUME 89.9 fl (83.0-99.0); MEAN PLATELET VOLUME 9.5 fl (9.4-12.3); MONOCYTES ABSOLUTE AUTO 0.4 K/mm3 (0.0-0.8); MONOCYTES PERCENT AUTO 6.7 % (0.0-8.0); NEUTROPHILS ABSOLUTE AUTO 3.7 K/mm3 (1.8-7.7); NEUTROPHILS PERCENT AUTO 62.7 % (41.0-71.0); PLATELET COUNT,PLT 175 K/mm3 (150-400); RED BLOOD CELL COUNT 4.84 M/mm3 (4.10-5.30); WHITE BLOOD CELL COUNT,WBC 5.97 K/mm3 (3.9-11.3)
[2023-07-29 17:36] LABS: RBC,URINE 0-5 /hpf (0-5); SQUAMOUS EPITHELIAL CELLS,UR 0-5 /hpf (0-5); WBC,URINE 0-5 /hpf (0-5)
[2023-07-29 17:37] LABS: BACTERIA,URINE FEW /hpf (FEW); MUCUS,URINE FEW /hpf (FEW)
[2023-07-29 17:40] LABS: BARBITURATE SCREEN,URINE NEGATIVE (CUTOFF=200); BENZODIAZEPINES SCREEN,URINE NEGATIVE (CUTOFF=150); BUPRENORPHINE SCREEN,URINE NEGATIVE (CUTOFF=10); METHADONE SCREEN, URINE NEGATIVE (CUTOFF=200); METHAMPHETAMINES SCREEN, URINE PRESUMPTIVE POSITIVE (CUTOFF=500); OXYCODONE SCREEN,URINE NEGATIVE (CUT0FF=100); THC SCREEN,URINE 20 NG/ML NEGATIVE (CUTOFF=50)
[2023-07-29 17:42] LABS: A/G RATIO 1.1 (1-2); ALBUMIN 3.5 g/dl (3.4-5.0); ANION GAP 10.4 (5-15); BILIRUBIN TOTAL 0.4 mg/dL (0.2-1.0); BUN/CREATININE RATIO 14.4 (14-18); CREATININE 0.9 mg/dL (0.55-1.02); EST CRCL DRUG DOSING (CG) 81.63 mL/min; MAGNESIUM 1.8 mg/dL (1.8-2.4); POTASSIUM,K 4.4 mEq/L (3.5-5.1); PROTEIN TOTAL,TP 6.6 g/dl (6.4-8.2)
[2023-07-29 17:43] LABS: AMPHETAMINES SCREEN, URINE PRESUMPTIVE POSITIVE (CUTOFF=500)
[2023-07-29 18:07] LABS: CORONAVIRUS COVID-19 NAA NEGATIVE (NEGATIVE); INFLUENZA A NAA NEGATIVE (NEGATIVE); RESPIRATORY SYNCYTIAL VIR NAA NEGATIVE (NEGATIVE)
[2023-07-29 20:54] VITALS: BP 127/79; PULSE 89
== END 2023-07-29 20:26 ==
LOC: JD.ED 16:24
DX: F15.20 Other stimulant dependence, uncomplicated (principal); I10 Essential (primary) hypertension; Z20.822 Contact with and (suspected) exposure to COVID-19; Z86.16 Personal history of COVID-19
CPT/HCPCS: 0241U; 36415; 80053; 80143; 80179; 80306; 80307; 81001; 83735; 85025; 99284; 99283